=== PATIENT | male | born 1990 | race African-American/Black ===

== ENCOUNTER 2019-08-31 09:52 | Emergency (ER) | payer BC ==
--- NOTE | 2019-08-31 10:58 | EDM.PDOC ---
ED HPI GENERAL MEDICAL PROBLEM - General Chief Complaint: Flank Pain Stated Complaint: LEFT SIDE PAIN FOR A WEEK Time Seen by Provider: 08/31/19 10:57 - History of Present Illness INITIAL COMMENTS - FREE TEXT/NARRATIVE: 29-year-old male presents the emergency room with left-sided flank pain. This pain is been going on for about a week. It is mostly in his left lower chest. It is aggravated by changing position but sometimes it just comes on out of the blue. Deep breathing does not necessarily make it any worse. Patient denies any recent trauma to his chest or elsewhere. He has not had any nausea or vomiting no fevers or chills he has tried some [id number] back relief medication with some benefit but not a whole lot. He has not used ibuprofen. The patient has not experienced any pain radiating into his lower abdomen or into his groin. Left Flank Pain Score (Numeric/FACES): 8 - Related Data Allergies Allergy/AdvReac Type Severity Reaction Status Date / Time No Known Allergies Allergy Verified 08/31/19 09:59 Home Meds: Home Meds . [No Known Home Meds] 03/12/19 [History] Past Medical History - Past Health History Medical/Surgical History: Denies Medical/Surgical History Social & Family History - Family History Family Medical History: Noncontributory - Tobacco Use Smoking Status *Q: Current Every Day Smoker Years of Tobacco use: 7 Packs/Tins Daily: 1 - Caffeine Use Caffeine Use: Reports: Coffee - Recreational Drug Use Recreational Drug Use: No ED ROS GENERAL - Review of Systems Review Of Systems: See Below Constitutional: Reports: No Symptoms HEENT: Reports: No Symptoms Respiratory: Reports: Pleuritic Chest Pain. Denies: No Symptoms, Shortness of Breath, Cough, Sputum, Hemoptysis Cardiovascular: Reports: No Symptoms GI/Abdominal: Reports: Abdominal Pain (Left upper quadrant aggravated by pushing on it) : Reports: Flank Pain. Denies: Dysuria, Frequency Musculoskeletal: Reports: No Symptoms Skin: Reports: No Symptoms Neurological: Reports: No Symptoms ED EXAM, GI/ABD - Physical Exam Exam: See Below Exam Limited By: No Limitations General Appearance: Alert, No Apparent Distress Head: Atraumatic, Normocephalic Neck: Normal Inspection, Supple, Non-Tender, Full Range of Motion. No: Lymphadenopathy (L), Lymphadenopathy (R) Respiratory/Chest: No Respiratory Distress, Lungs Clear, Normal Breath Sounds, Accessory Muscle Use (Some left lower rib pain with palpation mostly lateral and slightly anterior in the lowermost part of the chest wall.) Cardiovascular: Normal Peripheral Pulses, Regular Rate, Rhythm, No Edema GI/Abdominal Exam: Normal Bowel Sounds, Soft, Other (A lot of discomfort with palpation certainly the abdominal palpation does not make the pain worse since he get right the lower margin of the chest wall anteriorly and slightly lateral. ) Back Exam: Normal Inspection. No: CVA Tenderness (L), CVA Tenderness (R) Neurological: Alert, Oriented, Normal Cognition EKG INTERPRETATION EKG Date: 08/31/19 Rhythm: NSR [place]: Normal P-Wave: Present QRS: Normal ST-T: Other (Early repolarization pattern also border borderline first-degree AV block) QT: Normal EKG Interpretation Comments: No acute changes abnormal EKG with the early re-pole and borderline first- degree AV block Course - Vital Signs Last Recorded V/S: Last Vital Signs Temp 36.6 C 08/31/19 09:57 Pulse 60 08/31/19 09:57 Resp 18 08/31/19 09:57 BP 125/60 08/31/19 09:57 Pulse Ox 100 08/31/19 09:57 - Orders/Labs/Meds Orders: Active Orders 24 hr Category Date Time Status EKG Documentation Completion [RC] STAT Care 08/31/19 11:44 Active Chest 2V [CR] Stat Exams 08/31/19 11:28 Taken Labs: Laboratory Tests 08/31/19 08/31/19 08/31/19 Range/Units 10:00 10:00 10:00 WBC 5.69 (4.23-9.07) K/mm3 RBC 5.04 (4.63-6.08) M/mm3 Hgb 15.2 (13.7-17.5) gm/dl Hct 46.3 (40.1-51.0) % MCV 91.9 (79.0-92.2) fl MCH 30.2 (25.7-32.2) pg MCHC 32.8 (32.2-35.5) g/dl RDW Std Deviation 44.9 H (35.1-43.9) fL Plt Count 284 (163-337) K/mm3 MPV 10.1 (9.4-12.3) fl Neut % (Auto) 63.2 (34.0-67.9) % Lymph % (Auto) 21.1 L (21.8-53.1) % [place] % (Auto) 11.2 (5.3-12.2) % Eos % (Auto) 3.9 (0.8-7.0) Baso % (Auto) 0.2 (0.1-1.2) % Neut # (Auto) 3.60 (1.78-5.38) K/mm3 Lymph # (Auto) 1.20 L (1.32-3.57) K/mm3 [place] # (Auto) 0.64 (0.30-0.82) K/mm3 Eos # (Auto) 0.22 (0.04-0.54) K/mm3 Baso # (Auto) 0.01 (0.01-0.08) K/mm3 Sodium 143 (136-145) mEq/L Potassium 4.2 (3.5-5.1) mEq/L Chloride 104 (98-107) mEq/L Carbon Dioxide 29 (21-32) mEq/L Anion Gap 14.2 (5-15) BUN 20 H (7-18) mg/dL Creatinine 1.2 (0.7-1.3) mg/dL Est Cr Clr Drug Dosing 94.92 mL/min Estimated GFR (MDRD) > 60 (>60) mL/min BUN/Creatinine Ratio 16.7 (14-18) Glucose 77 (74-106) mg/dL Calcium 9.1 (8.5-10.1) mg/dL Total Bilirubin 0.6 (0.2-1.0) mg/dL AST 24 (15-37) U/L ALT 25 (16-63) U/L Alkaline Phosphatase 96 (46-116) U/L C-Reactive Protein 0.5 (<1.0) mg/dL Total Protein 7.9 (6.4-8.2) g/dl Albumin 3.6 (3.4-5.0) g/dl Globulin 4.3 gm/dL Albumin/Globulin Ratio 0.8 L (1-2) Urine Color (Yellow) Urine Appearance (Clear) Urine pH (5.0-8.0) Ur Specific [place] (1.005-1.030) Urine Protein (Negative) Urine Glucose (UA) (Negative) Urine Ketones (Negative) Urine Occult Blood (Negative) Urine Nitrite (Negative) Urine Bilirubin (Negative) Urine Urobilinogen (0.2-1.0) Ur Leukocyte Esterase (Negative) Urine RBC (0-5) /hpf Urine WBC (0-5) /hpf Ur Epithelial Cells (0-5) /hpf Amorphous Sediment (NOT SEEN) /hpf Urine Bacteria (FEW) /hpf Urine Mucus (FEW) /hpf 08/31/19 Range/Units 10:55 WBC (4.23-9.07) K/mm3 RBC (4.63-6.08) M/mm3 Hgb (13.7-17.5) gm/dl Hct (40.1-51.0) % MCV (79.0-92.2) fl MCH (25.7-32.2) pg MCHC (32.2-35.5) g/dl RDW Std Deviation (35.1-43.9) fL Plt Count (163-337) K/mm3 MPV (9.4-12.3) fl Neut % (Auto) (34.0-67.9) % Lymph % (Auto) (21.8-53.1) % [place] % (Auto) (5.3-12.2) % Eos % (Auto) (0.8-7.0) Baso % (Auto) (0.1-1.2) % Neut # (Auto) (1.78-5.38) K/mm3 Lymph # (Auto) (1.32-3.57) K/mm3 [place] # (Auto) (0.30-0.82) K/mm3 Eos # (Auto) (0.04-0.54) K/mm3 Baso # (Auto) (0.01-0.08) K/mm3 Sodium (136-145) mEq/L Potassium (3.5-5.1) mEq/L Chloride (98-107) mEq/L Carbon Dioxide (21-32) mEq/L Anion Gap (5-15) BUN (7-18) mg/dL Creatinine (0.7-1.3) mg/dL Est Cr Clr Drug Dosing mL/min Estimated GFR (MDRD) (>60) mL/min BUN/Creatinine Ratio (14-18) Glucose (74-106) mg/dL Calcium (8.5-10.1) mg/dL Total Bilirubin (0.2-1.0) mg/dL AST (15-37) U/L ALT (16-63) U/L Alkaline Phosphatase (46-116) U/L C-Reactive Protein (<1.0) mg/dL Total Protein (6.4-8.2) g/dl Albumin (3.4-5.0) g/dl Globulin gm/dL Albumin/Globulin Ratio (1-2) Urine Color Yellow (Yellow) Urine Appearance Clear (Clear) Urine pH 8.0 (5.0-8.0) Ur Specific [place] 1.025 (1.005-1.030) Urine Protein Negative (Negative) Urine Glucose (UA) Negative (Negative) Urine Ketones Negative (Negative) Urine Occult Blood Negative (Negative) Urine Nitrite Negative (Negative) Urine Bilirubin Negative (Negative) Urine Urobilinogen 2.0 H (0.2-1.0) Ur Leukocyte Esterase Negative (Negative) Urine RBC 0-5 (0-5) /hpf Urine WBC 0-5 (0-5) /hpf Ur Epithelial Cells 0-5 (0-5) /hpf Amorphous Sediment Many H (NOT SEEN) /hpf Urine Bacteria Few (FEW) /hpf Urine Mucus Moderate H (FEW) /hpf - Re-Assessments/Exams Free Text/Narrative Re-Assessment/Exam: 08/31/19 12:35 Chest x-ray is unrevealing no pulmonary contusions no obvious rib fracture and laboratory evaluation shows a normal CBC no white count elevation C-reactive protein is normal chemistries are for the most part unremarkable however his creatinine is 1.2 a little elevated for a 29-year-old 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 BUN is slightly elevated at 20 normal anion gap. EKG shows a early repolarization pattern and a borderline first-degree AV block. Departure - Departure Time of Disposition: 12:39 Disposition: Home, Self-Care 01 Clinical Impression: Left-sided chest wall pain - Discharge Information Referrals: PCP,None [Primary Care Provider] - Forms: ED Department Discharge Additional Instructions: Return to the emergency room with any questions problems or worsening symptoms. Use the Naprosyn as directed with breakfast and supper. Take 2 of the over-the- counter 220 mg tablets your morning and evening meals. Discontinue use when you are feeling better but you should not need to use this for longer than a week. Follow-up in the hospital clinic on Sunday or for recheck. As we discussed I cannot exclude a kidney stone at this point but I think it is unlikely. It is important that you follow-up in the clinic on Sunday or as we discussed. You need to push lots of fluids as your labs suggest you are a little dry. Sepsis Event Note - Evaluation Sepsis Screening Result: No Definite Risk - Focused Exam Vital Signs: Vital Signs Temp Pulse Resp BP Pulse Ox 08/31/19 09:57 36.6 C 60 18 125/60 100 Date Exam was Performed: 08/31/19 Time Exam was Performed: 12:35 - My Orders Last 24 Hours: My Active Orders 08/31/19 11:28 Chest 2V [CR] Stat 08/31/19 11:44 EKG Documentation Completion [RC] STAT - Assessment/Plan Last 24 Hours: My Active Orders 08/31/19 11:28 Chest 2V [CR] Stat 08/31/19 11:44 EKG Documentation Completion [RC] STAT
--- NOTE | 2019-08-31 13:33 | CR ---
Chest: 2 views of the chest were obtained. Comparison: No previous study. Bilateral perihilar adenopathy is seen as well as right paratracheal adenopathy. Lungs are clear with no acute parenchymal change. Heart size is normal. Bony structures are unremarkable. Impression: 1. Bilateral hilar adenopathy and right paratracheal adenopathy. Findings could relate to neoplasm such as lymphoma as well as sarcoid also being within the differential. Diagnostic code #9 This report was dictated in MDT
== END 2019-08-31 12:57 | disposition home or self-care (01) ==
LOC: JD.ED 09:52
DX: R07.89 Other chest pain (principal); R07.81 Pleurodynia; F17.210 Nicotine dependence, cigarettes, uncomplicated
CPT/HCPCS: 36415; 71046; 71046-26; 80053; 81001; 85025; 86140; 93005; 93010; 99283; 99285-25

== ENCOUNTER 2019-09-03 12:13 | Emergency (ER) | payer BC ==
[2019-09-03] MEDS ORDERED: Sodium Chloride 0.9% 10 ML Syringe FLUSH PRN (12:38)
--- NOTE | 2019-09-03 12:45 | EDM.PDOC ---
ED HPI GENERAL MEDICAL PROBLEM - General Chief Complaint: Abdominal Pain Stated Complaint: CHEST PAIN Time Seen by Provider: 09/03/19 12:20 Source of Information: Reports: Patient History Limitations: Reports: No Limitations - History of Present Illness INITIAL COMMENTS - FREE TEXT/NARRATIVE: Patient is a 29-year-old male who was sent to the emergency department from the clinic with complaints of intermittent left lower chest pain. He was seen in our emergency department approximately 3 days ago with similar symptoms. Patient states that the pain started on August 21 and has been present since that time. He was sitting and watching TV when the pain started. Pain is not present when he is at rest, however it is tender to palpation, painful with movement, and worse with deep breathing. When seen in the emergency department , his chest x-ray did show perihilar adenopathy and was advised to follow-up in the clinic. On discharge from the ER previously, patient was advised to take Naprosyn twice daily to treat his chest wall pain. He states he took it for the first day, however after that he stopped taking the medication. He has used ibuprofen 400 mg once or twice a day since that time. He states that while he was in the clinic, his blood pressure was found to be 98/50s so he was sent to the emergency department. He denies any dizziness or feeling like he is going to pass out associated with this blood pressure. He has had no shortness of breath, diaphoresis, nausea, vomiting, fever, or chills. Left Abdomen Pain Score (Numeric/FACES): 8 - Related Data Allergies Allergy/AdvReac Type Severity Reaction Status Date / Time No Known Allergies Allergy Verified 09/03/19 12:23 Home Meds: Home Meds . [No Known Home Meds] 03/12/19 [History] Past Medical History - Past Health History Medical/Surgical History: Denies Medical/Surgical History Social & Family History - Family History Family Medical History: Noncontributory - Tobacco Use Smoking Status *Q: Current Every Day Smoker Years of Tobacco use: 10 Packs/Tins Daily: 1 - Caffeine Use Caffeine Use: Reports: None - Recreational Drug Use Recreational Drug Use: No ED ROS GENERAL - Review of Systems Review Of Systems: See Below Constitutional: Reports: No Symptoms. Denies: Fever, Chills, Diaphoresis, Decreased Appetite HEENT: Reports: No Symptoms Respiratory: Reports: No Symptoms. Denies: Shortness of Breath, Cough Cardiovascular: Reports: Chest Pain. Denies: Dyspnea on Exertion, Lightheadedness, Palpitations, Syncope Endocrine: Reports: No Symptoms GI/Abdominal: Reports: No Symptoms. Denies: Abdominal Pain, Anorexia, Diarrhea , Nausea, Vomiting : Reports: No Symptoms Musculoskeletal: Reports: Other (Left lateral chest wall pain.) Skin: Reports: No Symptoms Neurological: Reports: No Symptoms. Denies: Dizziness, Headache, Weakness Psychiatric: Reports: No Symptoms Hematologic/Lymphatic: Reports: No Symptoms Immunologic: Reports: No Symptoms ED EXAM, GENERAL - Physical Exam Exam: See Below Exam Limited By: No Limitations General Appearance: Alert, WD/WN, No Apparent Distress Respiratory/Chest: No Respiratory Distress, Lungs Clear, Normal Breath Sounds, No Accessory Muscle Use, Other (Tenderness to the lower left lateral chest wall. ) Cardiovascular: Normal Peripheral Pulses, Regular Rate, Rhythm, No Edema, No Gallop, No JVD, No Murmur, No Rub GI/Abdominal: Normal Bowel Sounds, Soft, No Organomegaly, No Distention, No Abnormal Bruit, No Mass, Pelvis Stable, Other (No pain or tenderness throughout the abdomen.) Back Exam: Normal Inspection, Full Range of Motion. No: CVA Tenderness (L), CVA Tenderness (R) Extremities: Normal Inspection, Normal Range of Motion, Non-Tender, Normal Capillary Refill, No Pedal Edema Neurological: Alert, Oriented, CN II-XII Intact, Normal Cognition, Normal Gait, Normal Reflexes, No Motor/Sensory Deficits Psychiatric: Normal Affect, Normal Mood Skin Exam: Warm, Dry, Intact, Normal Color, No Rash EKG INTERPRETATION EKG Date: 09/03/19 Time: 13:16 Rhythm: NSR Rate (Beats/Min): 73 [place]: Normal P-Wave: Present QRS: Normal ST-T: Elevated (normal repolarization pattern) QT: Normal Course - Vital Signs Last Recorded V/S: Last Vital Signs Temp 98.1 F 09/03/19 12:21 Pulse 74 09/03/19 12:21 Resp 16 09/03/19 12:21 BP 124/69 09/03/19 12:21 Pulse Ox 96 09/03/19 12:21 Orthostatic Blood Pressure [ 107/63 Standing] Orthostatic Blood Pressure [ 110/67 Sitting] Orthostatic Blood Pressure [ 114/63 Supine] - Orders/Labs/Meds Orders: Active Orders 24 hr Category Date Time Status EKG Documentation Completion [RC] STAT Care 09/03/19 12:39 Active Orthostatic Vital Signs [RC] ASDIRECTED Care 09/03/19 12:37 Active Peripheral IV Care [RC] . DIRECTED Care 09/03/19 12:38 Active Chest 2V [CR] Stat Exams 09/03/19 13:47 Taken UA W/MICROSCOPIC [URIN] Stat Lab 09/03/19 15:07 Results Sodium Chloride 0.9% [Normal Saline] 1,000 ml Med 09/03/19 14:00 Active IV ASDIRECTED Sodium Chloride 0.9% [Saline Flush] Med 09/03/19 12:38 Active 10 ml FLUSH ASDIRECTED PRN Peripheral IV Insertion Adult [OM.PC] Stat Oth 09/03/19 12:38 Ordered Medication Orders Sodium Chloride (Normal Saline) 1,000 mls @ 999 mls/hr IV ASDIRECTED GAYATRI Last Admin: 09/03/19 14:23 Dose: 999 mls/hr Sodium Chloride (Saline Flush) 10 ml FLUSH ASDIRECTED PRN PRN Reason: Keep Vein Open Last Admin: 09/03/19 12:50 Dose: 10 ml Labs: Laboratory Tests 09/03/19 09/03/19 09/03/19 Range/Units 12:52 12:52 12:52 WBC 6.26 (4.23-9.07) K/mm3 RBC 4.84 (4.63-6.08) M/mm3 Hgb 14.4 (13.7-17.5) gm/dl Hct 44.3 (40.1-51.0) % MCV 91.5 (79.0-92.2) fl MCH 29.8 (25.7-32.2) pg MCHC 32.5 (32.2-35.5) g/dl RDW Std Deviation 45.9 H (35.1-43.9) fL Plt Count 273 (163-337) K/mm3 MPV 9.4 (9.4-12.3) fl Neut % (Auto) 69.6 H (34.0-67.9) % Lymph % (Auto) 18.7 L (21.8-53.1) % [place] % (Auto) 8.0 (5.3-12.2) % Eos % (Auto) 3.2 (0.8-7.0) Baso % (Auto) 0.3 (0.1-1.2) % Neut # (Auto) 4.36 (1.78-5.38) K/mm3 Lymph # (Auto) 1.17 L (1.32-3.57) K/mm3 [place] # (Auto) 0.50 (0.30-0.82) K/mm3 Eos # (Auto) 0.20 (0.04-0.54) K/mm3 Baso # (Auto) 0.02 (0.01-0.08) K/mm3 D-Dimer, Quantitative 0.24 (0.19-0.50) mg/L Sodium 142 (136-145) mEq/L Potassium 4.3 (3.5-5.1) mEq/L Chloride 108 H (98-107) mEq/L Carbon Dioxide 27 (21-32) mEq/L Anion Gap 11.3 (5-15) BUN 16 (7-18) mg/dL Creatinine 1.2 (0.7-1.3) mg/dL Est Cr Clr Drug Dosing 95.47 mL/min Estimated GFR (MDRD) > 60 (>60) mL/min BUN/Creatinine Ratio 13.3 L (14-18) Glucose 102 (74-106) mg/dL Calcium 8.5 (8.5-10.1) mg/dL Total Bilirubin 0.3 (0.2-1.0) mg/dL AST 15 (15-37) U/L ALT 21 (16-63) U/L Alkaline Phosphatase 82 (46-116) U/L Troponin I < 0.017 (0.00-0.056) ng/mL C-Reactive Protein 0.3 (<1.0) mg/dL Total Protein 7.2 (6.4-8.2) g/dl Albumin 3.2 L (3.4-5.0) g/dl Globulin 4.0 gm/dL Albumin/Globulin Ratio 0.8 L (1-2) Urine Color (Yellow) Urine Appearance (Clear) Urine pH (5.0-8.0) Ur Specific [place] (1.005-1.030) Urine Protein (Negative) Urine Glucose (UA) (Negative) Urine Ketones (Negative) Urine Occult Blood (Negative) Urine Nitrite (Negative) Urine Bilirubin (Negative) Urine Urobilinogen (0.2-1.0) Ur Leukocyte Esterase (Negative) 09/03/19 Range/Units 15:07 WBC (4.23-9.07) K/mm3 RBC (4.63-6.08) M/mm3 Hgb (13.7-17.5) gm/dl Hct (40.1-51.0) % MCV (79.0-92.2) fl MCH (25.7-32.2) pg MCHC (32.2-35.5) g/dl RDW Std Deviation (35.1-43.9) fL Plt Count (163-337) K/mm3 MPV (9.4-12.3) fl Neut % (Auto) (34.0-67.9) % Lymph % (Auto) (21.8-53.1) % [place] % (Auto) (5.3-12.2) % Eos % (Auto) (0.8-7.0) Baso % (Auto) (0.1-1.2) % Neut # (Auto) (1.78-5.38) K/mm3 Lymph # (Auto) (1.32-3.57) K/mm3 [place] # (Auto) (0.30-0.82) K/mm3 Eos # (Auto) (0.04-0.54) K/mm3 Baso # (Auto) (0.01-0.08) K/mm3 D-Dimer, Quantitative (0.19-0.50) mg/L Sodium (136-145) mEq/L Potassium (3.5-5.1) mEq/L Chloride (98-107) mEq/L Carbon Dioxide (21-32) mEq/L Anion Gap (5-15) BUN (7-18) mg/dL Creatinine (0.7-1.3) mg/dL Est Cr Clr Drug Dosing mL/min Estimated GFR (MDRD) (>60) mL/min BUN/Creatinine Ratio (14-18) Glucose (74-106) mg/dL Calcium (8.5-10.1) mg/dL Total Bilirubin (0.2-1.0) mg/dL AST (15-37) U/L ALT (16-63) U/L Alkaline Phosphatase (46-116) U/L Troponin I (0.00-0.056) ng/mL C-Reactive Protein (<1.0) mg/dL Total Protein (6.4-8.2) g/dl Albumin (3.4-5.0) g/dl Globulin gm/dL Albumin/Globulin Ratio (1-2) Urine Color Yellow (Yellow) Urine Appearance Clear (Clear) Urine pH 7.5 (5.0-8.0) Ur Specific [place] 1.025 (1.005-1.030) Urine Protein Negative (Negative) Urine Glucose (UA) Negative (Negative) Urine Ketones Negative (Negative) Urine Occult Blood Negative (Negative) Urine Nitrite Negative (Negative) Urine Bilirubin Negative (Negative) Urine Urobilinogen 0.2 (0.2-1.0) Ur Leukocyte Esterase Negative (Negative) Meds: Medications Generic Name Dose Route Start Last Admin Trade Name Freq PRN Reason Stop Dose Admin Sodium Chloride 1,000 mls @ 999 mls/hr 09/03/19 14:00 09/03/19 14:23 Normal Saline IV 999 mls/hr ASDIRECTED GAYATRI Administration Sodium Chloride 10 ml 09/03/19 12:38 09/03/19 12:50 Saline Flush FLUSH 10 ml ASDIRECTED PRN Administration Keep Vein Open - Re-Assessments/Exams Free Text/Narrative Re-Assessment/Exam: 09/03/19 15:26 Patient's work-up was found to be grossly unremarkable, with the exception of the same perihilar adenopathy that was present on his previous chest x-ray. D- dimer was negative, troponin was negative, CRP was negative. Discussed with patient that the cause of his pain is likely musculoskeletal in nature and recommended that he take the Naprosyn twice daily for the next 5 days consistently to see if that resolves the pain. I did call and speak with Smitha Carbajal NP in the clinic. She recommended that he schedule an appointment for the next available visit to further follow-up on the perihilar adenopathy. Patient is in agreement with this plan. We will discharge him home with routine precautions. Departure - Departure Time of Disposition: 15:26 Disposition: Home, Self-Care 01 Condition: Good Clinical Impression: Left-sided chest wall pain Instructions: Chest Wall Pain, [id number] Referrals: PCP,None [Primary Care Provider] - Smitha Carbajal, EVGENY [Nurse Practitioner] - Forms: ED Department Discharge Additional Instructions: You were seen in the emergency department for ongoing left-sided chest wall pain. Your work-up included blood work, chest x-ray, EKG of your heart, and urinalysis. Your work-up was found to be normal with the exception of the same perihilar adenopathy that was present on your previous chest x-ray. As we discussed, it is likely the cause your chest pain is musculoskeletal. Recommend that you take the Naprosyn 440 mg twice daily for the next 5 days to treat this discomfort. An appointment has been scheduled for you for tomorrow September 03 at 10:15 AM with Smitha Carbajal PROCESS CONTROLLER for follow-up with regards to the abnormal finding on your chest x-ray. If you should experience any new or worsening symptoms of concern, please do not hesitate to return to the emergency department. Sepsis Event Note - Evaluation Sepsis Screening Result: No Definite Risk - Focused Exam Vital Signs: Vital Signs Temp Pulse Resp BP Pulse Ox 09/03/19 12:21 98.1 F 74 16 124/69 96 Date Exam was Performed: 09/03/19 Time Exam was Performed: 15:30 - My Orders Last 24 Hours: My Active Orders 09/03/19 12:37 Orthostatic Vital Signs [RC] ASDIRECTED 09/03/19 12:38 Peripheral IV Care [RC] . DIRECTED Sodium Chloride 0.9% [Saline Flush] 10 ml FLUSH ASDIRECTED PRN Peripheral IV Insertion Adult [OM.PC] Stat 09/03/19 12:39 EKG Documentation Completion [RC] STAT 09/03/19 13:47 Chest 2V [CR] Stat 09/03/19 14:00 Sodium Chloride 0.9% [Normal Saline] 1,000 ml IV ASDIRECTED 09/03/19 15:07 UA W/MICROSCOPIC [URIN] Stat - Assessment/Plan Last 24 Hours: My Active Orders 09/03/19 12:37 Orthostatic Vital Signs [RC] ASDIRECTED 09/03/19 12:38 Peripheral IV Care [RC] . DIRECTED Sodium Chloride 0.9% [Saline Flush] 10 ml FLUSH ASDIRECTED PRN Peripheral IV Insertion Adult [OM.PC] Stat 09/03/19 12:39 EKG Documentation Completion [RC] STAT 09/03/19 13:47 Chest 2V [CR] Stat 09/03/19 14:00 Sodium Chloride 0.9% [Normal Saline] 1,000 ml IV ASDIRECTED 09/03/19 15:07 UA W/MICROSCOPIC [URIN] Stat
[2019-09-03] MEDS ORDERED: Sodium Chloride 0.9% 1,000 ML IV SCH (14:00)
--- NOTE | 2019-09-04 07:15 | CR ---
Chest: 2 views of the chest were obtained. Comparison: Prior chest x-ray of 08/31/19. Continuing hilar adenopathy and right paratracheal adenopathy is seen. No change from previous chest x-ray is seen. Lungs are clear with no acute parenchymal change. Bony structures are unremarkable. Impression: 1. Continuing adenopathy as noted above. 2. Nothing acute is otherwise seen. Note: Differential remains the same as noted on prior chest x-ray report. Diagnostic code #3 This report was dictated in MDT
== END 2019-09-03 15:42 | disposition home or self-care (01) ==
LOC: JD.ED 12:13
DX: R07.89 Other chest pain (principal); F17.210 Nicotine dependence, cigarettes, uncomplicated
CPT/HCPCS: 36415; 71046; 80053; 81001; 84484; 85025; 85379; 86140; 93005; 96360; 99285; J7030; 93010; 99283

== ENCOUNTER 2020-06-28 22:32 | Emergency (ER) | payer SELFPAY ==
[2020-06-28] MEDS ORDERED: FLU VACC QS2020-21(6MOS UP)/PF 60 MCG/0.5 ML SYRINGE IM ONE (23:30)
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
[2020-06-29] MEDS ORDERED: Orphenadrine 100 MG Tab.ER PO STA (01:42)
[2020-06-29] MEDS ORDERED: Ibuprofen 600 MG Tab PO ONE (01:42)
--- NOTE | 2020-06-29 07:08 | CR ---
Chest: 2 views of the chest were obtained. Comparison: Prior chest x-ray of 09/03/19. Adenopathy is seen within the right paratracheal region as well as within both hilar regions. This is similar to previous exam. Heart size is normal. Lungs are clear with no acute parenchymal change. Bony structures are unremarkable. Impression: 1. Stable adenopathy within both hilar regions and right paratracheal region. Please correlate if etiology is known. 2. Nothing acute is otherwise appreciated. Diagnostic code #3
== END 2020-06-29 01:56 | disposition home or self-care (01) ==
LOC: JD.ED 22:32
DX: R07.89 Other chest pain (principal); M79.621 Pain in right upper arm; Z72.0 Tobacco use; Z23 Encounter for immunization
CPT/HCPCS: 71046; 90471; 90686; 99284; A9270; G0008

== ENCOUNTER 2024-05-21 18:09 | Emergency (ER) | payer SELFPAY ==
[2024-05-21] MEDS: Bacitracin Oint 15 GM Tube TOP ONE (19:37)
[2024-05-21] MEDS: Diphtheria,Pertussis(Acell),Tetanus Vaccine 0.5 ML Syringe IM ONE (19:48)
== END 2024-05-21 20:10 | disposition home or self-care (01) ==
LOC: JD.ED 18:09
DX: S60.511A Abrasion of right hand, initial encounter (principal); S60.512A Abrasion of left hand, initial encounter; F17.210 Nicotine dependence, cigarettes, uncomplicated; W55.03XA Scratched by cat, initial encounter
CPT/HCPCS: 99283; A9270